=== PATIENT | male | born 1995 | race Caucasian/White ===

== ENCOUNTER 2023-12-18 08:00 | Emergency (ER) | payer OTHER, SELFPAY ==
[2023-12-18 08:03] VITALS: BP 126/83; PULSE 86; TEMP 37.1; O2SAT 98; BMI 38.5
--- NOTE | 2023-12-18 08:25 | CT_ITS ---
The [address] [address] Patient Name: DEDRICK HERNANDEZ MRN: [id number] date: 1995 Sex: M Assigned Patient Location: ER Current Patient Location: .[facility] Accession/Order Number: [id number] Exam Date: 12/18/2023 08:51 Report Date: 12/18/2023 09:11 At the request of: CANDIDO OLIVA Procedure: CT abdomen pelvis wo con EXAM: CT abdomen pelvis wo con INDICATION: Abdominal pain with bloody stools. Recent mono. COMPARISON: None. TECHNIQUE: Multiple contiguous axial CT images of the abdomen and pelvis were obtained without the use of intravenous contrast. Sagittal and coronal reconstructions were performed. Dose reduction techniques were achieved by using: automated exposure control and/or adjustment of mA and /or kV according to patient size and/or use of iterative reconstruction technique. FINDINGS: Evaluation of visceral organs limited by noncontrast technique. LOWER CHEST: No significant abnormality. ABDOMEN AND PELVIS: LIVER: Unremarkable. BILIARY SYSTEM: Normal gallbladder. No biliary ductal dilatation. PANCREAS: Unremarkable. SPLEEN: Unremarkable. ADRENAL GLANDS: Normal. URINARY SYSTEM: Unremarkable kidneys. No hydronephrosis or urolithiasis. Normal bladder. REPRODUCTIVE: Unremarkable. GASTROINTESTINAL TRACT: Normal caliber bowel. No bowel wall thickening or inflammation. Appendicolith. The appendix is otherwise normal. VESSELS: Nonaneurysmal abdominal aorta. LYMPH NODES: No adenopathy. PERITONEUM: No ascites or pneumoperitoneum. MUSCULOSKELETAL: SOFT TISSUES: Unremarkable soft tissues. BONES: No acute osseous abnormality or suspicious osseous lesion. Bilateral L5 pars defects with grade 1 anterolisthesis of L5 on S1 and moderate to severe degenerative disc disease at this level. GUAMAN: (series:image) CT/CT abdomen pelvis wo con IMPRESSION: No acute abdominal or pelvic process. Electronically authenticated by: WENDIE BASSETT Date: 12/18/2023 09:11
--- NOTE | 2023-12-18 08:26 | ED.ABDPAIN1 ---
HPI - Abdominal Pain General Chief Complaint: Abdominal Pain Stated Complaint: ABDOMINAL PAIN Time Seen by Provider: 12/18/23 08:07 Source: patient Mode of arrival: walk-in History of Present Illness HPI narrative: The patient is a 28-year-old male presenting to the ER with multiple complaints, but his most acute complaint or abdominal pain that is all over the abdomen he was evaluated by his primary care doctor almost 10 days ago when he had a blood workup and also was diagnosed with mono, the patient proceeding to that have symptoms of chest pain on and off in his retrosternal area that has been worked out as outpatient he mentioned that the pain usually associated with shortness of breath He denies any weight gain or weight loss over the last year he also denies any regular activity as he mentioned that 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 The patient raised 2 kids at home with his fianc?e He denies any nausea or vomiting with the pain he also denies any relation of the pain to food as he is not having normal appetite The pain is all over the abdomen sometimes in the right upper and sometimes in the middle of the abdomen and he mentioned that the pain is fixed and he noted some blood in stool today and Wednesday, it was only streaks of blood on the stool there was no blood on the tissue when he wiped and there was no hemorrhoid history or pain when having bowel movement The patient bowel movements are normal Related Data Previous Rx's ?Medication ?Instructions ?Recorded dicyclomine 20 mg tablet 20 mg PO QID PRN abdominal pain 12/18/23 #10 tabs famotidine 20 mg tablet (Pepcid) 20 mg PO BID #14 tabs 12/18/23 Allergies Allergy/AdvReac Type Severity Reaction Status Date / Time No Known Drug Allergies Allergy Verified 12/18/23 08:07 Review of Systems ROS Status of ROS 10 or more systems reviewed and unremarkable except as noted in history and below PFSH PFSH Social History Little interest or pleasure in doing things: not at all Feeling down, depressed, or hopeless: not at all Exam Narrative Exam Narrative: Nurses notes and vital signs reviewed and patient is not hypoxic. General: Well-appearing and in no apparent distress. Skin: Warm, dry, no pallor noted. No rash. Head: Normocephalic, atraumatic. Neck: Supple, non-tender. Eye: Pupils are equal, round and EOMI. No scleral icterus. Ears, Nose, Mouth, and Throat: TM are clear, no nasal mucosal hypertrophy. Oral mucosa is moist, no posterior oropharynx erythema, uvula is mid-line Cardiovascular: Regular Rate and Rhythm without murmur, gallop or rub. Respiratory: No accessory muscle use or respiratory distress. Lungs are clear to auscultation, no wheezing, rales or rhonchi Chest Wall: no tenderness Back: No midline thoracic or lumbar vertebral tenderness. No CVA tenderness Musculoskeletal: normal ROM, no calf or popliteal tenderness, no lower extremity edema/swelling GI: Abdomen is soft, non-distended. Normal bowel sounds. No masses appreciated. No tenderness to palpation. No rebound, guarding, or rigidity noted. Neurological: A&O x4. No cranial nerve dysfunction observed. No truncal ataxia. Moves all extremities. Sensation intact. Psychiatric: Cooperative and interactive. Normal mood and affect. Constitutional Vital Signs, click to edit/add: Last Vital Signs Temp 98.8 F 12/18/23 08:03 Pulse 86 12/18/23 08:03 Resp 18 12/18/23 08:03 BP 126/83 12/18/23 08:03 Pulse Ox 98 12/18/23 08:03 O2 Del Method Room Air 12/18/23 08:03 Course Vital Signs Vital signs: Vital Signs Temperature 98.8 F 12/18/23 08:03 Pulse Rate 86 12/18/23 08:03 Respiratory Rate 18 12/18/23 08:03 Blood Pressure 126/83 12/18/23 08:03 Pulse Oximetry 98 12/18/23 08:03 Oxygen Delivery Method Room Air 12/18/23 08:03 Temperature 98.8 F 12/18/23 08:03 Pulse Rate 86 12/18/23 08:03 Respiratory Rate 18 12/18/23 08:03 Blood Pressure 126/83 12/18/23 08:03 Pulse Oximetry 98 12/18/23 08:03 Oxygen Delivery Method Room Air 12/18/23 08:03 MDM - Abdominal Pain MDM Narrative Medical decision making narrative: The patient CBC and chemistry showed no acute significant pathology Rectal examination showed that the patient have no hemorrhoids or any active bleeding The patient also had a CAT scan that shows no acute pathology as well His presentation of abdominal pain could be secondary to his recent viral infection he was treated in the ER with Toradol discharged home with Bentyl as well as Pepcid The patient is to follow up with primary care physician in next 2-3 days or to return to the emergency department should any of the signs or symptoms worsen or new symptoms develop. The patient agrees with the following Diagnosis and Treatment plan and the patient will be discharged home. Lab Data Labs: Lab Results 12/18/23 Range/Units 08:38 WBC 6.2 (4.0-11.0) 10^3/uL RBC 5.13 (4.70-6.10) 10^6/uL Hgb 15.4 (14.0-18.0) g/dL Hct 45.7 (42.0-54.0) % MCV 89.1 (80.0-94.0) fL MCH 30.0 (25.9-34.0) pg MCHC 33.7 (29.9-35.2) g/dL RDW 12.4 (11.0-15.0) % Plt Count 204 (150-450) 10^3/uL MPV 9.1 L (9.5-13.5) fL Neut % (Auto) 54.0 (43.0-75.0) % Lymph % (Auto) 28.1 (20.5-60.0) % Logan % (Auto) 11.9 (1.7-12.0) % Eos % (Auto) 4.9 (0.9-7.0) % Baso % (Auto) 0.8 (0.2-2.0) % Neut # (Auto) 3.3 (1.4-6.5) 10^3/uL Lymph # (Auto) 1.7 (1.2-3.8) 10^3/uL Logan # (Auto) 0.7 (0.3-0.8) 10^3/uL Eos # (Auto) 0.3 (0.0-0.7) 10^3/uL Baso # (Auto) 0.1 (0.0-0.1) 10^3/uL Abs Immat Gran (auto) 0.02 (0.00-0.03) 10^3/uL Imm/Tot Granulo (auto) 0.3 (0.0-0.5) % Sodium 136 (136-145) mmol/L Potassium 3.7 (3.5-5.1) mmol/L Chloride 101 (98-107) mmol/L Carbon Dioxide 25.6 (21.0-32.0) mmol/L Anion Gap 13.1 BUN 12.0 (7.0-18.0) mg/dL Creatinine 1.19 (0.70-1.30) mg/dL Est GFR ( Amer) >60 (>=60 mL/min/1.73m^2) Est GFR (Non-Af Amer) >60 (>=60 mL/min/1.73m^2) BUN/Creatinine Ratio 10.1 Glucose 108 H (74-106) mg/dL Calcium 9.3 (8.5-10.1) mg/dL Total Bilirubin 0.4 (0.2-1.0) mg/dL AST 22 (15-37) U/L ALT 40 (16-63) U/L Alkaline Phosphatase 67 (46-116) U/L Total Protein 7.1 (6.4-8.2) g/dL Albumin 3.6 (3.4-5.0) g/dL Globulin 3.5 g/dL Albumin/Globulin Ratio 1.0 Discharge Plan Discharge Chief Complaint: Abdominal Pain Clinical Impression: Abdominal pain Patient Disposition: Home, Self-Care Time of Disposition Decision: 09:24 Condition: Good Prescriptions / Home Meds: New famotidine [Pepcid] 20 mg tablet 20 mg PO BID Qty: 14 0RF dicyclomine 20 mg tablet 20 mg PO QID PRN (Reason: abdominal pain) Qty: 10 0RF Print Language: Malian Instructions: Abdominal Pain (ED) Referrals: ROSALBA MATTHEW [Primary Care Provider] - 1 week Discharge Date/Time: 12/18/23 09:31
[2023-12-18] MEDS: FAMOTIDINE/PF 20 MG/2 ML VIAL IV (08:42)
[2023-12-18] MEDS: KETOROLAC TROMETHAMINE 30 MG/ML VIAL 15 MG IVP (08:42)
[2023-12-18 08:48] LABS: Basophils Absolute Auto 0.1 10^3/uL (0.0-0.1); Basophils Percent Auto 0.8 % (0.2-2.0); Eosinophils Absolute Auto 0.3 10^3/uL (0.0-0.7); Eosinophils Percent Auto 4.9 % (0.9-7.0); Hematocrit 45.7 % (42.0-54.0); Hemoglobin 15.4 g/dL (14.0-18.0); Immature Granulocytes Abs Auto 0.02 10^3/uL (0.00-0.03); Immature Granulocytes Pct Auto 0.3 % (0.0-0.5); Lymphocytes Absolute Auto 1.7 10^3/uL (1.2-3.8); Lymphocytes Percent Auto 28.1 % (20.5-60.0); Mean Corpuscular HGB Conc 33.7 g/dL (29.9-35.2); Mean Corpuscular Volume 89.1 fL (80.0-94.0); Mean Platelet Volume 9.1 fL (9.5-13.5); Monocytes Absolute Auto 0.7 10^3/uL (0.3-0.8); Monocytes Percent Auto 11.9 % (1.7-12.0); Neutrophils Absolute Auto 3.3 10^3/uL (1.4-6.5); Platelet Count 204 10^3/uL (150-450); Red Blood Count 5.13 10^6/uL (4.70-6.10); Red Cell Distribution Width 12.4 % (11.0-15.0); White Blood Count 6.2 10^3/uL (4.0-11.0)
[2023-12-18 09:02] LABS: Alanine Aminotransferase 40 U/L (16-63); Albumin Level 3.6 g/dL (3.4-5.0); Alkaline Phosphatase 67 U/L (46-116); Anion Gap 13.1; Aspartate Amino Transferase 22 U/L (15-37); BUN Creatinine Ratio 10.1; Bilirubin Total 0.4 mg/dL (0.2-1.0); Calcium 9.3 mg/dL (8.5-10.1); Carbon Dioxide 25.6 mmol/L (21.0-32.0); Chloride 101 mmol/L (98-107); Estimated GFR (African America >60 (>=60 mL/min/1.73m^2); Estimated GFR (Non-African Ame >60 (>=60 mL/min/1.73m^2); Globulin 3.5 g/dL; Glucose 108 mg/dL (74-106); Potassium 3.7 mmol/L (3.5-5.1); Sodium 136 mmol/L (136-145); Total Protein 7.1 g/dL (6.4-8.2)
== END 2023-12-18 09:31 | disposition home or self-care (01) ==
PROVIDERS: Emergency Provider Emergency Medicine; PCP Family Medicine
DX: R10.9 Unspecified abdominal pain (principal)
CPT/HCPCS: 36415; 74176; 80053; 85025; 96374; 96375; 99284; J1885